=== PATIENT | male | born 1980 | race Caucasian/White ===

== ENCOUNTER 2017-02-17 22:09 | Emergency (ER) | payer OTHER ==
[~2017-02-17] VITALS: Ht 157.5 cm; Wt 70.0 kg
[2017-02-17 22:13] VITALS: BP 195/98; PULSE 84; RESP 18; TEMP 98.4; O2SAT 100
[2017-02-17] MEDS ORDERED: KETOROLAC TROMETHAMINE 60 MG/2 ML (IM) VIAL IM ONE (22:45)
--- NOTE | 2017-02-17 23:01 | PD ---
HPI Chief Complaint: Pain: Acute or Chronic Time Seen by Provider: 22:37 Travel History International Travel<30 days: No Contact w/Intl Traveler<30days: No Traveled to known affect area: No History of Present Illness HPI 36-year-old male here for evaluation of right anterior and right lateral chest pain that started after he slipped and fell while drinking alcohol and fishing. Patient reports that he drank about 5 beers today. He slipped on a wet fishing dock, landing onto his right anterior/lateral chest. He denies head injury or LOC. He denies any other injuries. Injury occurred about 2 hours ago. Pain is moderate, constant, worse with movement, palpation, and inspiration. He denies dyspnea. No abdominal pain. [facility] Past Medical History Medical History: Denies Significant Hx Past Surgical History Surgical History: No Previous Surgery Social History Alcohol Use: Yes (5 beers today but usually 5 beers a week) Tobacco Use: No Substance Use: No Allergies-Medications (Allergen,Severity, Reaction): Coded Allergies: No Known Allergies (Unverified , 02/17/17) Review of Systems Except as stated in HPI: all other systems reviewed are Neg Physical Exam Narrative GENERAL: Well-developed, well-nourished, comfortable, no apparent distress. SKIN: Focused skin assessment warm/dry. HEAD: Atraumatic. Normocephalic. EYES: Pupils equal and round. No scleral icterus. No injection or drainage. ENT: Mucous membranes pink and moist. NECK: Trachea midline. No JVD. No midline vertebral step-off or tenderness. CARDIOVASCULAR: Regular rate and rhythm. No murmur appreciated. RESPIRATORY: No accessory muscle use. Clear to auscultation. Breath sounds equal bilaterally. GASTROINTESTINAL: Abdomen soft, non-tender, nondistended. MUSCULOSKELETAL: No obvious deformities. No clubbing. No cyanosis. No edema. No midline vertebral step-off or tenderness. Right anterior/lateral chest wall tenderness without crepitus, without step-off, without paradoxical chest wall movements. NEUROLOGICAL: Awake and alert. No obvious cranial nerve deficits. Motor grossly within normal limits. Normal speech. PSYCHIATRIC: Appropriate mood and affect; insight and judgment normal. Data Data Last Documented VS Vital Signs Date Time Temp Pulse Resp B/P Pulse Ox O2 Delivery O2 Flow Rate FiO2 02/17/17 22:38 14 02/17/17 22:13 98.4 84 195/98 100 Orders Ribs, Uni (W/Exp Cxr-Min 3vw) (02/17/17 ) Ketorolac Inj (Toradol Inj) (02/17/17 22:45) MDM Medical Decision Making Medical Screen Exam Complete: Yes Emergency Medical Condition: Yes Differential Diagnosis Chest wall contusion, rib fractures, pneumothorax, hemothorax, pulmonary contusion Narrative Course Vital signs show heart rate 84, blood pressure 195/98, pulse ox 100% on room air , oral temp of 98.4F. Right ribs and chest x-ray: CONCLUSION: Unremarkable examination of the right ribs and chest. Patient made aware of all findings. He is resting comfortably. He is in no respiratory distress. Lung sounds are clear and equal bilaterally. He does have some right anterior/lateral chest wall tenderness without crepitus, without step-off, without paradoxical chest wall movements. His abdominal exam shows no tenderness whatsoever. He is stable for discharge home with outpatient follow-up with a primary care physician this week. He was informed on when to return to the emergency department. He verbalizes understanding and agreement with plan. Diagnosis Primary Impression: Chest wall contusion Qualified Code: S20.211A - Contusion of right chest wall, initial encounter Referrals: [facility] 3 days Primary Care Physician 3 days Additional Instructions: Follow-up with a primary care physician this week. Return to the emergency department for worsening symptoms or any other concerns. Scripts Naproxen (Naprosyn)500 Mg Vis527 Mg PO BID #14 TAB Ref 0 Prov:Boni Sandoval MD 02/17/17 Disposition: 01 DISCHARGE HOME Condition: Stable Boni Sandoval MD Feb 17, 2017 23:01
--- NOTE | 2017-02-17 23:04 | RADRPT ---
EXAM DATE/TIME: 02/17/2017 22:58 [place] COMPARISON: No previous studies available for comparison. INDICATIONS : Right rib pain post fall today MEDICAL HISTORY : None. SURGICAL HISTORY : None. ENCOUNTER: Initial ACUITY: 1 day PAIN SCORE: 6/10 LOCATION: Right axillary ribs FINDINGS: Multiple views of the right ribs were performed. There is no evidence of displaced fracture. No domenic tructive lesions or areas of periosteal thickening are seen. Expiratory view of the chest is negativ e for pneumothorax. The mediastinal structures are midline. CONCLUSION: Unremarkable examination of the right ribs and chest. Joseph Joiner MD on February 17, 2017 at 23:01 Board Certified Radiologist. This report was verified electronically.
[2017-02-17] MEDS ORDERED: NAPR500 PO (23:14)
== END 2017-02-17 23:37 | disposition home or self-care (01) ==
LOC: NEPD 22:09
DX: S20.211A Contusion of right front wall of thorax, initial encounter (principal); W01.0XXA Fall on same level from slipping, tripping and stumbling without subsequent striking against object, initial encounter; Y92.89 Other specified places as the place of occurrence of the external cause; F10.10 Alcohol abuse, uncomplicated
CPT/HCPCS: 71101; 96372; 99284; J1885